=== PATIENT | female | born 1995 | race Caucasian/White ===

== ENCOUNTER 2023-10-19 09:46 | Emergency (ER) | payer OTHER ==
[~2023-10-19] VITALS: Ht 167.6 cm; Wt 90.7 kg
[2023-10-19 10:10] VITALS: BP 123/99; PULSE 85; RESP 18; TEMP 97; O2SAT 98
[2023-10-19] MEDS ORDERED: KETOROLAC 60 MG/2 ML VIAL IM ONE (10:40)
[2023-10-19] MEDS ORDERED: CYCLOBENZAPRINE 10 MG TAB PO ONE (10:40)
[2023-10-19] MEDS ORDERED: LIDOCAINE 5% 1 EA PATCH TP ONE (10:40)
[2023-10-19] MEDS ORDERED: DICL20GE TP (11:00)
[2023-10-19] MEDS ORDERED: IBUP-2218 PO (11:00)
[2023-10-19] MEDS ORDERED: CYCL-711 PO (11:00)
== END 2023-10-19 11:10 | disposition home or self-care (01) ==
LOC: MED 09:46
DX: S39.012A Strain of muscle, fascia and tendon of lower back, initial encounter (principal); Z79.899 Other long term (current) drug therapy; Z79.1 Long term (current) use of non-steroidal anti-inflammatories (NSAID); X50.0XXA Overexertion from strenuous movement or load, initial encounter; Y92.89 Other specified places as the place of occurrence of the external cause; Y93.89 Activity, other specified; Y99.8 Other external cause status
CPT/HCPCS: 81002; 81025; 96372; 99283; J1885

== ENCOUNTER 2024-01-16 13:18 | Emergency (ER) | payer OTHER ==
[~2024-01-16] VITALS: Ht 167.6 cm; Wt 126.1 kg
[~2024-01-16 13:18] MED LIST: CYCL-711 PO; DICL20GE TP; IBUP-2218 PO
[2024-01-16 13:33] VITALS: BP 108/68; PULSE 88; RESP 16; TEMP 97.1; O2SAT 98
[2024-01-16] MEDS: FLUORESCEIN OPTH STRIP 1 MG OP ONE (14:52)
[2024-01-16 15:20] VITALS: BP 108/68; PULSE 88; RESP 16; TEMP 97.1; O2SAT 98
== END 2024-01-16 15:48 | disposition home or self-care (01) ==
LOC: MED 13:18
DX: H11.33 Conjunctival hemorrhage, bilateral (principal); Z79.899 Other long term (current) drug therapy
CPT/HCPCS: 99283